=== PATIENT | male | born 1965 | race Caucasian/White ===

== ENCOUNTER 2019-08-15 09:20 | Inpatient (IN) | payer MEDICARE, MEDICAID ==
[2019-08-15 10:36] VITALS: BP 124/76
--- NOTE | 2019-08-15 13:29 | Psychiatric Evaluation ---
DATE OF SERVICE: 08/15/2019 IDENTIFYING DATA: The patient is a 53-year-old male, currently homeless. Information obtained by directly interviewing the patient as well as reviewing the admission papers. JUSTIFICATION OF HOSPITALIZATION: The patient is admitted here on a 5150 as danger to self and being gravely disabled. CHIEF COMPLAINT: "I have bugs in me." HISTORY OF PRESENT ILLNESS: This is the first psychiatric hospitalization to [facility] for this patient who has been brought from the [facility] in [place]. The patient is reported to have been complaining that bugs or maggot in his ears, and ____, preoccupied with the treatment. The patient has been getting easily agitated and has been using profanities, acting very bizarre by taking his clothes off and pouring water on himself, stating that he is taking a bath. The patient has been evaluated and medically cleared and brought over here for stabilization. The patient has been getting easily irritable, angry, and the patient has to be given a dose of Zyprexa and Benadryl this morning. The patient is reported to have not been sleeping and not able to care for himself. The patient is getting verbally abusive and is stating he does not need to answer all the questions. The patient is not able to care for self at this time. The patient has been admitted over here on a 5150 for being danger to self and being gravely disabled. PAST PSYCHIATRIC HISTORY: Details about prior psychiatric hospitalizations are not known at this time. MEDICAL HISTORY: Physical examination is requested to be done by Dr. Renteria. SUBSTANCE ABUSE HISTORY: The patient denies use of any drugs or alcohol. SOCIAL HISTORY: The patient is currently homeless. LEGAL PROBLEMS: None at this time. STRENGTH AND ASSETS: The patient seems to be motivated. MENTAL STATUS EXAMINATION: The patient is a 53-year-old thin built, very tall superficially cooperative. Eye contact is noted to be poor. Mood is noted to be irritable. The patient appears to be of stated age and the patient is very unkempt. The patient has psychomotor agitation. Mood is noted to be irritable. Affect is noted to be constricted. Speech is noted to be coherent. The patient is very evasive and is not providing much of information during the evaluation. Continues to be very paranoid and has been preoccupied with the bugs in his body. The patient denies any auditory hallucinations. The patient is alert and oriented to time, place, person and situation. Short and long-term are noted to be intact. Insight is noted to be very poor. Judgment is also noted to be very poor. The patient is very angry and upset. The patient's behavior is equally danger to self at this time and the patient has not been able to care for self. DIAGNOSTIC IMPRESSION: AXIS I: 1A: Unspecified psychosis. 1B: Rule out substance abuse. AXIS II: None. AXIS III: As per Dr. Renteria. IMMEDIATE TREATMENT PLAN: The patient is going to be observed on inpatient unit, provided with supportive psychotherapy. The patient is going to be started on the Zyprexa. The patient is going to be closely monitored. Once stabilized, the patient is going to be discharged to [facility] to be followed up on an outpatient basis. JOB# [id number]
--- NOTE | 2019-08-16 16:35 | Progress Notes ---
DATE: 08/16/2019 PSYCHIATRIC PROGRESS NOTE SUBJECTIVE: Staff was spoken to. The patient is interviewed. Mood is noted to be irritable. Affect is constricted. The patient is pacing most of the time on the unit. The patient has no insight into his illness. The patient is screaming and yelling and is very demanding. The patient has been very paranoid. No side effects to the medications are noted. ASSESSMENT: The patient is still psychotic. PLAN: To continue the patient with the supportive therapy and followup. JOB# [id number]
[2019-08-17] MEDS ORDERED: Haloperidol Lactate 5 mg/mL 1mL Vial ONE (10:00)
[2019-08-17] MEDS ORDERED: Haloperidol Lactate 5 mg/mL 1mL Vial IM ONE (10:00)
--- NOTE | 2019-08-17 20:21 | Progress Notes ---
DATE: 08/17/2019 PSYCHIATRIC PROGRESS NOTE SUBJECTIVE: Staff was spoken to. The patient is interviewed. Mood is noted to be irritable. Affect is constricted. The patient is pacing most of the time on the unit. The patient is stating that he wants to go to a board and care. The patient has been very impulsive and has been aggressive. The patient has been testing the limits. The patient needs to be redirected. The patient is still responding to internal stimuli. Plan to increase the dose on the olanzapine to 10 mg twice a day and follow the patient. ASSESSMENT: The patient is still grossly psychotic and impulsive. PLAN: To continue the patient with the supportive therapy and followup. JOB# [id number]
--- NOTE | 2019-08-18 10:54 | Progress Notes ---
DATE: 08/18/2019 PSYCHIATRIC PROGRESS NOTE SUBJECTIVE: Staff was spoken to. The patient is interviewed. Mood is noted to be irritable. Affect is constricted. The patient is still very intrusive and has been testing the limits. The patient has no insight into his illness. The patient is stating he does not need any help. He wants to go out of the streets. ASSESSMENT: The patient is still grossly psychotic and impulsive. PLAN: To continue the patient with the supportive therapy and encouraged the patient to verbalize the concerns. The patient is going to be requested to be seen by the hospital social worker. JOB# [id number]
--- NOTE | 2019-08-18 19:36 | History & Physical ---
ADMIT DATE: 08/18/2019 HISTORY OF PRESENT ILLNESS: A 53-year-old male who is homeless, has been going in and out of Emergency Room for his routine care, presented to [facility] in [facility] for maggots in his ear which needed to be removed. The patient was seen by Emergency Room MD as well as the psychiatrist and after that the patient was advised to be admitted at Geropsych Unit. PAST MEDICAL HISTORY: Remarkable for hypertension, degenerative joint disease, questionable diabetes mellitus. MEDICATIONS: The patient is currently on Ativan, Zyprexa, Ambien, Tylenol, and Benadryl. ALLERGIES: The patient is allergic to PENICILLIN. SOCIAL HISTORY: The patient is homeless. He has a history of smoking cigarette and occasionally drink alcohol and takes street drugs. FAMILY MEDICAL HISTORY: Remarkable for hypertension. REVIEW OF SYSTEMS: The patient is currently complaining of pain on his both ears and thinks he has maggots on his both ears. PHYSICAL EXAMINATION: HEENT: Normocephalic, atraumatic. Extraocular muscles are intact. Tongue was pink and coated. Multiple absent teeth noted. No facial asymmetry. Bilateral cerumen impaction noted. There is open wound on the right ear also noted. NECK: Supple, no JVD, no hepatojugular reflex. No lymphadenopathy, thyromegaly, or carotid bruit. HEART: Both heart sounds are regular. No S3, no S4, no murmur. CHEST AND LUNGS: Equal in expansion, no expiratory wheezing. ABDOMEN: Soft, no guarding, no rigidity. Liver and spleen not palpable. No palpable mass. EXTREMITIES: No edema, no cyanosis. Peripheral pulses +2. No calf tenderness noted. NEUROLOGIC: Alert, awake and oriented to time, place, person. Cranial #II, IV and , able to move eyes upward, downward, medially, laterally. Cranial #VII; no facial asymmetry noted. Cranial #VIII, able to hear loud voice clearly. Cranial #IX, gag reflex present. Cranial #X, able to say ah. Cranial #XI, able to shrug shoulder bilaterally equally. Cranial #XII; tongue is in midline. Power in upper and lower extremities 5+ and sensory to light touch intact. Babinski both toes are going down. No cerebral sign. SKIN: The patient has superficial abrasions on his right great toe without any evidence of cellulitis. AVAILABLE DIAGNOSTIC DATA: Performed at [facility] remarkable for urine drug screen positive for methamphetamine, microcytic hypochromic anemia with hemoglobin of 9.8, creatinine is 1.6 also noted. MCV is 75.2, MCHC was 31, anion gap was reported 14, potassium 3.7. I do not have any other labs for my review. CLINICAL IMPRESSION: 1. Psychotic disorder. 2. Bilateral cerumen impaction. 3. Open wound on the right ear. 4. Microcytic hypochromic anemia. 5. Elevated creatinine, suspect chronic. 6. History of hypertension. 7. Homelessness. 8. Degenerative joint disease. 9. Psychotic disorder. PLAN: 1. The patient's microcytic hypochromic anemia needs to be worked up with elevated creatinine. We will repeat CBC and chemistry panel. The patient to have Debrox eardrops on his both ears four times a day and have ear lavage to be done later. 2. The patient is to have Bacitracin ointment applied to be on the open wound on the right ear. 3. The patient is to continue Keflex 500 mg four times a day for his infection on his open wound. 4. Psychotic evaluation and management deferred to psychiatrist. 5. Social service to see the patient for homelessness and placement. 6. Nutritional support. 7. We will continue to follow this patient during the stay in the hospital. I sincerely thank you, Dr. Pizarro for giving me the opportunity to participate in patient of yours. JOB# [id number]
--- NOTE | 2019-08-18 20:13 | Consultation ---
DATE OF CONSULTATION: 08/17/2019 REFERRING PHYSICIAN: Martha Pizarro M.D. TYPE OF CONSULTATION: Psychology. HISTORY OF PRESENT ILLNESS: The following is by record review and by the patient's self-report. The patient is a 53-year-old male. Records indicate the patient is homeless. The patient is being admitted on a 5150 as a danger to self and gravely disabled. The patient did not provide much information. The records indicate the patient was taken to [facility] in [place] and was complaining about having maggots in his ears. The patient presents as easily agitated as well as using profane language. Of note, the patient's history includes the patient taking off his clothes. The patient was medically cleared at [facility]. The patient is getting easily irritated and angry with this senior copywriter for asking questions. Records indicate sleep is poor. The patient is extremely difficult to redirect and is verbally abusive and aggressive. The patient did not answer questions about experiencing suicidal or homicidal ideation. The patient presents as gravely disabled. PAST MEDICAL HISTORY: Please see history and physical by Dr. Renteria. PAST PSYCHIATRIC HISTORY: Records are unavailable. Details are unknown. The patient did not answer the question about having any prior psychiatric hospitalizations. SUBSTANCE ABUSE HISTORY: The patient denied any use or abuse of illicit drugs or alcohol or tobacco. BRIEF PSYCHOSOCIAL HISTORY: Records indicate the patient is homeless. The patient did not answer questions about occupational or educational history or zoroastrian affiliation. He did not answer questions about current legal problems or past history of physical or sexual abuse. The patient is guarded and dismissive as well as easily agitated. The patient did state that he believes he should be transferred to a board and care immediately. MENTAL STATUS EXAMINATION: The patient appears to be his stated age. The patient's attitude is uncooperative and dismissive. Eye contact is poor. Speech is loud with anger outbursts. Mood is irritable. Affect is constricted. Thought process includes paranoid ideation along with preoccupation with "I have bugs in my body." The patient may be experiencing tactile hallucinations. He denied any auditory or visual hallucinations. The patient is not providing much information and is evasive. The patient's behavior is uncontainable and pacing on the unit with anger outbursts. The patient is difficult to behaviorally redirect. Impulse control is impaired. The patient's sensorium is alert to place and self only. The patient did not participate in the memory assessment. The patient did not verbally contract for safety. The patient did not participate in the interpretation of proverbs. Insight is impaired. Judgment is impaired. DIAGNOSTIC IMPRESSION AXIS I: 1. Psychotic disorder, not otherwise specified. 2. Impulse control disorder, not otherwise specified. AXIS II: Deferred. AXIS III: Per Dr. Berman. TREATMENT PLAN: The patient has been seen by Dr. Pizarro for psychiatric evaluation and for the management of the patient's psychotropic medications. We will provide supportive psychotherapy and behavioral therapy to include de-escalation and limit setting. We will provide boundary awareness and definitions along with motivational enhancement for the patient to become compliant with his care and treatment and to follow through with staff direction. Staff indicates the patient needed Emergency Medicine today. The patient is being closely monitored, but continues to pace on the unit with intermittent explosive and anger outbursts. We will provide coping strategies for chronic severe mental illness. We will provide reality orientation, differentiation and integration. We will encourage the patient to follow through with staff direction and to follow through with the treatment protocols. We will provide daily opportunities for the patient to verbally contract for safety, i.e., no self harm and no harm to others. The patient continues to be demanding as well as easily agitated and aggressive. We will follow up in 2-3 days to continue the present treatment. Thank you, Dr. Pizarro for this consult and the opportunity to participate with you in this patient's care. [facility]# [id number] CLAUDY
[2019-08-19] MEDS: Carbamide Peroxide Otic Soln 15 mL Bottle EACH EAR SCH ×2 (09:35→17:01)
--- NOTE | 2019-08-19 14:30 | Progress Notes ---
DATE: 08/19/2019 PSYCHIATRIC PROGRESS NOTE SUBJECTIVE: Staff was spoken to. The patient is interviewed. Mood is noted to be irritable. Affect is constricted. The patient's insight and judgment are noted to be still impaired. The patient is more focused on eating all the time. The patient has no insight into his illness. The patient is currently on 10 mg twice a day of the olanzapine and the patient has no place to return to. PLAN: To closely monitor the patient. I encouraged the patient to verbalize the concerns and once stabilized, the patient is going to be discharged to any placement that is available. JOB# [id number]
--- NOTE | 2019-08-19 18:01 | Progress Notes ---
DATE: 08/19/2019 SUBJECTIVE: The patient seen and examined. The patient is lying in the bed. The patient is easy to awake. He wants to go home. Blood test is not done. PHYSICAL EXAMINATION: VITAL SIGNS: Temperature 97.5, pulse is 54, respiratory rate is 18, blood pressure 134/80. HEENT: No facial asymmetry. NECK: Supple, no JVD. HEART: Both heart sounds are regular. CHEST AND LUNGS: Equal in expansion, no expiratory wheezing. ABDOMEN: Soft. EXTREMITIES: No edema. CLINICAL IMPRESSION: 1. Bilateral cerumen impaction. 2. Microcytic hypochromic anemia. 3. Psychiatric disorder. 4. Open wound on the right ear. 5. Homelessness. 6. Elevated creatinine, probably chronic, needs further evaluation. PLAN: Continue Debrox for cerumen impaction and then ER lavage once liquefies cerumen. Continue Keflex and wound care for his wound on the right ear. Continue to provide psychiatric treatment by psychiatrist. The patient needs a blood test and based on that, further recommendation will be given. Care plan has been reviewed and discussed with staff. JOB# [id number]
[2019-08-20] MEDS: Carbamide Peroxide Otic Soln 15 mL Bottle EACH EAR SCH ×2 (08:10→16:59)
--- NOTE | 2019-08-20 10:21 | Progress Notes ---
DATE: 08/19/2019 PSYCHOLOGY PROGRESS NOTE SUBJECTIVE: The patient is seen in his room. The patient is somnolent and is not arousable verbally. The patient finally was aroused by touch and is easily agitated. The patient is very limited in terms of understanding why he has been hospitalized with poor insight into his illness. The patient has been intermittently noncompliant with care and treatment as well as difficult to redirect with anger outbursts and aggressive behavior. OBJECTIVE: Mood is irritable. Affect is constricted. Thought process shows to be depressogenic and argumentative. The patient did not answer questions about experiencing auditory or visual hallucinations or delusions; however, paranoid ideation persists. The patient's behavior continues to be problematic with episodes of aggression and agitation with sporadic anger outbursts. ASSESSMENT AND PLAN: The patient's psychosis and impulsivity and aggression persist. PLAN: We provided remotivation for the patient to become compliant and stay compliant with his care and treatment. We encouraged the patient to verbalize his concerns versus acting out. We provided a simple anger management skill, which included de-escalation and limit setting. We encouraged the patient to verbally contract for safety, i.e., no self-harm and no harm to others. The patient was unable to verbally contract for safety. The patient continues to be angry and aggressive. We will follow up to continue the present treatment in 2-3 days. JOB# [id number] CLAUDY
--- NOTE | 2019-08-20 12:11 | Progress Notes ---
DATE: 08/20/2019 PSYCHIATRIC PROGRESS NOTE SUBJECTIVE: Staff was spoken to. The patient is interviewed. Mood is noted to be irritable. Affect is constricted. The patient is very intrusive and has been demanding that he should be discharged. Insight and judgment at this time are noted to be still impaired. Impulse control seems to be limited. Coping skills are noted to be limited. ASSESSMENT: The patient has been perseverative about being discharged. He does not have any place to go and he states he wants to go on to the streets. meat process worker has been involved and they are trying to look for placement for this patient. JOB# [id number]
[2019-08-20] MEDS: Venelex 60gm Tube TP SCH (17:21)
[2019-08-21] MEDS: Venelex 60gm Tube TP SCH (08:21)
[2019-08-21] MEDS ORDERED: Lactobacillus Rhamnosus GG 15 Billion CFU CAP.SPRINK PO SCH (09:00)
--- NOTE | 2019-08-21 14:30 | Progress Notes ---
DATE: 08/21/2019 PSYCHIATRIC PROGRESS NOTE SUBJECTIVE: Staff was spoken to. The patient is interviewed. Mood is noted to be irritable. Affect is constricted. The patient is fixated on discharge. Packets have been sent to several different places so far, none has accepted the patient. The patient's insight and judgment at this time are noted to be still improving. He is not suicidal or homicidal. He denies any auditory hallucinations and no delusions are noted. His sleep and appetite are improving. No side effects to meds are noted. He has been compliant with meds.He is motivated to seek trt. ASSESSMENT: The patient is stabilizing and awaiting placement. PLAN: To continue the patient with the current medications and await for placement. JOB# [id number] [email or web address]
--- NOTE | 2019-08-22 12:01 | Progress Notes ---
DATE: 08/21/2019 PSYCHOLOGY PROGRESS NOTE SUBJECTIVE: The patient is seen in his room. The patient is lying down in bed and is somnolent, but arousable verbally. The patient turned towards this bid writer and asked "when are we supposed to go shopping today?" "They told me they would take me before I left". The patient did not answer any other clinical questions. Staff reports the patient has been less aggressive, but still easily agitated. OBJECTIVE: Mood is irritable. Affect is constricted. Thought process shows to be confused and markedly tangential with poor cognitive refocusing and redirection. The patient denied any hallucinations or delusions. Staff reports the patient has been compliant with the medication. ASSESSMENT: The patient is awaiting placement. Staff reports the patient is most likely to discharge today. Impulsivity is lessening. PLAN: We provided reality testing, reality orientation, differentiation and integration. We provided remotivation for the patient to become compliant and stay compliant with all aspects of his care and treatment and to accept placement. The patient is most likely discharging today, therefore no followup is indicated. JOB# [id number] CLAUDY
== END 2019-08-21 17:56 | DRG 885 ==
LOC: GERO 09:20
PROVIDERS: ADMIT Psychiatry & Neurology Psychiatry; ATTEND Psychiatry & Neurology Psychiatry
DX: F23 Brief psychotic disorder (principal); F63.9 Impulse disorder, unspecified; H61.23 Impacted cerumen, bilateral; D50.9 Iron deficiency anemia, unspecified; I10 Essential (primary) hypertension; M19.90 Unspecified osteoarthritis, unspecified site; S01.301A Unspecified open wound of right ear, initial encounter; X58.XXXA Exposure to other specified factors, initial encounter; Y93.89 Activity, other specified; Z88.0 Allergy status to penicillin; Z59.0 Homelessness; Z87.891 Personal history of nicotine dependence; Y92.89 Other specified places as the place of occurrence of the external cause
CPT/HCPCS: 83036-90; 90899; J1200; J1630; J2060; J7051; Z7610